=== PATIENT | male | born 1955 | race Hispanic/Latino ===

== ENCOUNTER 2018-06-25 13:12 | Emergency (ER) | payer MEDICARE, BC ==
[2018-06-25 13:13] VITALS: BMI 24.0
[2018-06-25 13:24] VITALS: TEMP 98.3
--- NOTE | 2018-06-25 14:12 | ED PDOC ---
Arrival/HPI - General Chief Complaint: Male Genitourinary Time Seen by Provider: 06/25/18 13:29 Historian: Patient - History of Present Illness Narrative History of Present Illness (Text): A 63 year old male, whose past medical history includes Coronary Artery Disease, cardiac ablation, cardiac pacemaker, two hernias repaired in 06/2014. presents to the emergency department for a complaint of left sided testicular discomfort. The patient reports that the pain began 5 days ago after lifting a case of water bottles. Since then, he has been experiencing the pain. The patient notes that he became concerned since he has a history of two hernias which have been repaired. The patient notes that it appears swollen. The patient denies fevers, chills, headache, dizziness, chest pain, shortness of breath, dyspnea on exertion, cough, abdominal pain, nausea, vomiting, diarrhea, back pain, neck pain, penile discharge, hematuria, urinary/bowel changes, or any other complaint. PMD: Dr. Parnell Time/Duration: Other (5 days) Symptom Onset: Sudden Symptom Course: Unchanged Activities at Onset: Rest, Light Context: Home Past Medical History - Provider Review Nursing Documentation Reviewed: Yes - Infectious Disease Hx of Infectious Diseases: None - Tetanus Immunization Tetanus Immunization: Unknown - Cardiac Hx Cardiac Disorders: Yes Hx Angina: Yes Hx Hypertension: Yes - Pulmonary Hx Respiratory Disorders: Yes Hx Asthma: Yes - Neurological Hx Neurological Disorder: No - HEENT Hx HEENT Disorder: No - Renal Hx Renal Disorder: No - Endocrine/Metabolic Hx Endocrine Disorders: No - Hematological/Oncological Hx Blood Disorders: No - Integumentary Hx Dermatological Disorder: No - Musculoskeletal/Rheumatological Hx Musculoskeletal Disorders: Yes Hx Arthritis: Yes Hx Falls: No Other/Comment: cervical disc disease, costochondritis - Gastrointestinal Hx Gastrointestinal Disorders: No - Genitourinary/Gynecological Hx Genitourinary Disorders: No - Psychiatric Hx Psychophysiologic Disorder: No Hx Substance Use: No - Surgical History Hx Cardiac Catheterization: Yes (with stent to LAD) Hx Coronary Stent: Yes Other/Comment: Hernia repair 06/19/14 at [facility] - Anesthesia Hx Anesthesia: Yes Hx Anesthesia Reactions: No Hx Malignant Hyperthermia: No - Suicidal Assessment Feels Threatened In Home Enviroment: No Family/Social History - Physician Review Nursing Documentation Reviewed: Yes Family/Social History: No Known Family HX Smoking Status: Never Smoked Hx Alcohol Use: No Hx Substance Use: No Hx Substance Use Treatment: No Allergies/Home Meds Allergies/Adverse Reactions: Allergies PCN Allergy (Uncoded 06/25/18 13:24) ANAPHYLAXIS Home Medications: Home Meds Medication Instructions Recorded Confirmed Metoprolol Succinate XL [Toprol XL] 25 mg PO DAILY 07/10/12 06/25/18 RX: Aspirin 325 mg PO DAILY 07/10/12 06/25/18 Rosuvastatin Calcium [Crestor] 5 mg PO DAILY 06/15/16 06/25/18 Review of Systems - Physician Review All systems were reviewed & negative as marked: Yes - Review of Systems Constitutional: absent: Fevers Eyes: absent: Vision Changes ENT: absent: Hearing Changes Respiratory: absent: SOB, Cough Cardiovascular: absent: Chest Pain, Palpitations, DE ANDA Gastrointestinal: absent: Abdominal Pain, Stool Changes, Diarrhea, Nausea, Vomiting Genitourinary Male: Other (Left testicular pain.). absent: Dysuria, Frequency, Hematuria, Urinary Output Changes Musculoskeletal: absent: Back Pain, Neck Pain Neurological: absent: Headache, Dizziness Physical Exam Vital Signs Reviewed: Yes Vital Signs Temp Pulse Resp BP Pulse Ox 06/25/18 13:20 98.3 F 85 19 118/70 98 Temperature: Afebrile Blood Pressure: Normal Pulse: Regular Respiratory Rate: Normal Appearance: Positive for: Well-Appearing, Non-Toxic, Comfortable Pain Distress: None Mental Status: Positive for: Alert and Oriented X 3 - Systems Exam Head: Present: Atraumatic, Normocephalic Pupils: Present: PERRL Extroacular Muscles: Present: EOMI Conjunctiva: Present: Normal Mouth: Present: Moist Mucous Membranes Neck: Present: Normal Range of Motion Respiratory/Chest: Present: Clear to Auscultation, Good Air Exchange. No: Respiratory Distress, Accessory Muscle Use Cardiovascular: Present: Regular Rate and Rhythm, Normal S1, S2. No: Murmurs Abdomen: No: Tenderness, Distention, Peritoneal Signs Genitourinary Male: Present: Testicle Tenderness (Tender to palpation. ), Testicle Swelling (Left testicular swelling. ). No: Lesions, Penile Discharge, Penile Swelling, Erythema Back: Present: Normal Inspection Upper Extremity: Present: Normal Inspection. No: Cyanosis, Edema Lower Extremity: Present: Normal Inspection. No: Edema Neurological: Present: GCS=15, CN II-XII Intact, Speech Normal Skin: Present: Warm, Dry, Normal Color. No: Rashes Psychiatric: Present: Alert, Oriented x 3, Normal Insight, Normal Concentration Medical Decision Making ED Course and Treatment: Impression: A 63 year old male presents to the emergency department with a complaint of left testicular pain. Enlargened L testicle on my exam, TTP, without rash. No penile d/c or rash noted. No hx of STDS. No high risk behavior. No drug use. Pain after lifting- given hx of hernias ?hernia, will seek US and Urine. Plan: -- Testicular Ultrasound -- Urinalysis -- Labs -- Reassess and disposition Prior Visits: Notes and results from previous visits were reviewed. Progress Notes: Urine unremarkable US w/ testicular cyst Will seek CT to rule out hernia. 06/25/18 18:[address] US w/ cyst Negative UA, labs unremarkabke to f/u w/ GI for diverticulitis and Uro for cyst. Given abx for diverticulitis pt agreeable w/ plan. - Lab Interpretations I have reviewed the lab results: Yes - RAD Interpretation Narrative RAD Interpretations (Text): TESTES DUPLEX COMPLETE Signed By: Angie Gutierrez MD Date Signed: 06/25/18 1515 IMPRESSION: Bilateral varicoceles. 0.6 x 0.4 x 0.4 cm left epididymal cyst. PROCEDURE: CT Abdomen and Pelvis with contrast Signed By: Corbin Jones MD Date Signed: 06/25/18 1833 IMPRESSION: Stable inguinal lymphadenopathy. Focal inflammatory changes limited to the sigmoid and adjacent proximal rectum. Segmental colitis/diverticulitis are the most likely etiologies. Radiology Orders: 06/25/18 13:31 TESTES DUPLEX COMPLETE [US] Stat - Scribe Statement The provider has reviewed the documentation as recorded by the Scribe Pita Littlejohn Provider Scribe Attestation: All medical record entries made by the Scribe were at my direction and personall y dictated by me. I have reviewed the chart and agree that the record accurately reflects my personal performance of the history, physical exam, medical decision making, and the department course for this patient. I have also personally directed, reviewed, and agree with the discharge instructions and disposition. Disposition/Present on Arrival - Present on Arrival Any Indicators Present on Arrival: No History of DVT/PE: No History of Uncontrolled Diabetes: No Urinary Catheter: No History of Decub. Ulcer: No History Surgical Site Infection Following: None - Disposition Have Diagnosis and Disposition been Completed?: Yes Diagnosis: Diverticulitis, Testicular cyst Disposition: HOME/ ROUTINE Disposition Time: 18:56 Condition: GOOD Discharge Instructions (ExitCare): Diverticulitis Additional Instructions: FOLLOWUP WITH YOUR UROLOGIST FOR YOUR CYST FOLLOWUP WITH YOUR GI DOCTOR FOR YOUR DIVERTICULITIS RETURN IF NOT IMPROVED OR ADVERSE REACTION TO MEDICATIONS YOLA JONES, thank you for letting us take care of you today. Your provider was Dean Leong and you were treated for MALE GENITOURINARY. The emergency medical care you received today was directed at your acute symptoms. If you were prescribed any medication, please fill it and take as directed. It may take several days for your symptoms to resolve. Return to the Emergency Department if your symptoms worsen, do not improve, or if you have any other problems. Please contact your doctor or call one of the physicians/clinics you have been referred to that are listed on the Patient Visit Information form that is included in your discharge packet. Bring any paperwork you were given at discharge with you along with any medications you are taking to your follow up visit. Our treatment cannot replace ongoing medical care by a primary care provider outside of the emergency department. Thank you for allowing the [facility] team to be part of your care today. If you had an X-Ray or CT scan: A Radiologist will review the ED reading if any change in treatment is needed we will contact you. If you had a blood, urine, or wound culture: It will take several days for the results, if any change in treatment is needed we will contact you. If you had an STI test: It will take 48 hours for the results. Please call after 1 week if you have not heard back. Prescriptions: RX: Ciprofloxacin [Cipro] 500 mg PO BID 10 Days #20 tab Metronidazole [Flagyl] 500 mg PO TID 10 Days #30 tablet Referrals: Castro Parnell MD [Family Provider] - Follow up with primary Luis Robledo MD [Staff Provider] - Follow up with primary Basilia Hazel MD [Staff Provider] - Follow up with primary Forms: [employer] ([place])
[2018-06-25 14:39] LABS: BASO # 0.01 K/mm3 (0.0-2.0); BASO % 0.1 % (0.0-3.0); EOS # 0.2 (0.0-0.7); EOS % 2.3 % (1.5-5.0); GRAN # 4.61 (1.4-6.5); GRAN % 65.3 % (50.0-68.0); HEMOGLOBIN 15.5 g/dL (14.0-18.0); LYMPH # 1.9 (1.2-3.4); LYMPH % 26.2 % (22.0-35.0); MEAN CELL VOLUME 90.5 fl (80.0-105.0); MEAN CORPUSCULAR HEMOGLOBIN 30.6 pg (25.0-35.0); MEAN CORPUSCULAR HGB CONC 33.8 g/dl (31.0-37.0); MEAN PLATELET VOLUME 11.9 fl (7.0-11.0); MONO # 0.4 (0.1-0.6); MONO % 6.1 % (1.0-6.0); RBC 5.06 10^6/uL (3.5-6.1); RED CELL DISTRIBUTION WIDTH 12.2 % (11.5-14.5); WHITE BLOOD COUNT 7.1 10^3/uL (4.5-11.0)
[2018-06-25 14:45] LABS: ALB/GLOB RATIO 1.4 (1.1-1.8); ALBUMIN 4.1 g/dL (3.0-4.8); ALT/SGPT 26 U/L (7-56); AST/SGOT 30 U/L (17-59); BLOOD UREA NITROGEN 16 mg/dL (7-21); CALCIUM 9.5 mg/dL (8.4-10.5); GFR NON-AFRICAN AMERICAN > 60
[2018-06-25 15:02] LABS: URINE APPEARANCE CLEAR (CLEAR); URINE BILIRUBIN NEGATIVE (NEGATIVE); URINE BLOOD NEGATIVE (NEGATIVE); URINE COLOR YELLOW (YELLOW); URINE GLUCOSE (UA) NEGATIVE (NEGATIVE); URINE LEUKOCYTE ESTERASE NEGATIVE Leu/uL (NEGATIVE); URINE PROTEIN NEGATIVE mg/dL (<30 mg/dL); URINE UROBILINOGEN 0.2 E.U./dL (<1 E.U./dL)
--- NOTE | 2018-06-25 15:19 | US ---
Date of service: 06/25/2018 HISTORY: testicle pain TECHNIQUE: Realtime sonography through the scrotum with color and doppler flow. COMPARISON: None Available. FINDINGS: RIGHT TESTICLE: Measures 3.4 x 1.4 x 2.0 cm. Homogeneous echotexture. Blood flow is demonstrated. RIGHT EPIDIDYMIS: Unremarkable LEFT TESTICLE: Measures 3.0 x 1.5 x 2.2 cm. Homogeneous echotexture. Blood flow is demonstrated. LEFT EPIDIDYMIS: 0.6 x 0.4 x 0.4 cm cyst. HYDROCELE: None. VARICOCELE: Bilateral varicoceles. OTHER FINDINGS: None. IMPRESSION: Bilateral varicoceles. 0.6 x 0.4 x 0.4 cm left epididymal cyst.
[2018-06-25] MEDS ORDERED: Iohexol 240 (50 ml) ONE (16:00)
[2018-06-25] MEDS ORDERED: Iohexol 350 MG/100 ML VIAL ONE (17:41)
--- NOTE | 2018-06-25 18:36 | CT ---
Date of service: 06/25/2018 PROCEDURE: CT Abdomen and Pelvis with contrast HISTORY: L groin mass . ? hernia. Hx of hernia surgery COMPARISON: 11/05/2015 CT abdomen and pelvis. June 25, 2018 testicular ultrasound. TECHNIQUE: 100 cc Omnipaque 350. Is Radiation dose: Total exam DLP = 309.77 mGy-cm. This CT exam was performed using one or more of the following dose reduction techniques: Automated exposure control, adjustment of the mA and/or kV according to patient size, and/or use of iterative reconstruction technique. FINDINGS: LOWER THORAX: Unremarkable. LIVER: Unremarkable. No gross lesion or ductal dilatation. GALLBLADDER AND BILE DUCTS: Unremarkable. PANCREAS: Unremarkable. No gross lesion or ductal dilatation. SPLEEN: Unremarkable. ADRENALS: Unremarkable. No mass. KIDNEYS AND URETERS: Unremarkable. No hydronephrosis. No solid mass. VASCULATURE: Unremarkable. No aortic aneurysm. No atherosclerotic calcification or mural plaque present. BOWEL: Thickening of the wall of the sigmoid. This occurs in an area of diverticular disease. The differential considerations are segmental colitis and segmental acute diverticulitis. The distal rectum in descending colon are spared. APPENDIX: Not visible. PERITONEUM: Unremarkable. No free fluid. No free air. LYMPH NODES: Large left inguinal lymph nodes compared to the right side. However, these are stable findings compared to the prior CT scan. BLADDER: Unremarkable. REPRODUCTIVE: Unremarkable. BONES: No acute fracture. OTHER FINDINGS: None. IMPRESSION: Stable inguinal lymphadenopathy. Focal inflammatory changes limited to the sigmoid and adjacent proximal rectum. Segmental colitis/diverticulitis are the most likely etiologies.
[2018-06-25 19:26] VITALS: BP 158/85; PULSE 82; RESP 18
[2018-06-25 19:27] VITALS: O2SAT 99
== END 2018-06-25 19:26 | disposition home or self-care (01) ==
LOC: ED 13:12
DX: N44.2 Benign cyst of testis (principal); K57.92 Diverticulitis of intestine, part unspecified, without perforation or abscess without bleeding; I10 Essential (primary) hypertension; I25.10 Atherosclerotic heart disease of native coronary artery without angina pectoris; Z95.0 Presence of cardiac pacemaker
CPT/HCPCS: 74177; 80053; 81003; 85025; 93975; 99284; Q9966; Q9967